=== PATIENT | female | born 1970 | race Two or more races ===

== ENCOUNTER 2018-12-25 22:34 | Emergency (ER) | payer SELFPAY ==
[~2018-12-25] VITALS: Ht 162.6 cm; Wt 70.4 kg
[2018-12-25] MEDS ORDERED: cloNIDine HCL 0.1 MG TAB PO ONE ×2 (23:00→23:15)
[2018-12-26 02:09] VITALS: BP 127/82
== END 2018-12-26 04:02 | disposition home or self-care (01) ==
LOC: ER 22:40
DX: I10 Essential (primary) hypertension (principal)